=== PATIENT | male | born 1985 | race Caucasian/White ===

== ENCOUNTER 2020-08-30 16:48 | Emergency (ER) | payer SELFPAY ==
[2020-08-30 17:08] VITALS: BP 128/85; PULSE 66; TEMP 99.1; BMI 25.8
== END 2020-08-30 18:00 | disposition home or self-care (01) ==
LOC: JERFT 16:48
DX: H60.503 Unspecified acute noninfective otitis externa, bilateral (principal)
CPT/HCPCS: 99283-25

== ENCOUNTER 2020-09-10 17:31 | Emergency (ER) | payer SELFPAY ==
[2020-09-10 17:48] VITALS: BP 115/61; PULSE 57; BMI 25.8
[2020-09-10] MEDS ORDERED: IBUPROFEN 600 MG TABLET (FP) PO ONE ×2 (18:28→18:33)
== END 2020-09-10 18:37 | disposition home or self-care (01) ==
LOC: JERFT 17:31
DX: H66.90 Otitis media, unspecified, unspecified ear (principal)
CPT/HCPCS: 99284-25

== ENCOUNTER 2021-12-04 19:20 | Emergency (ER) | payer OTHER ==
[2021-12-04 19:42] VITALS: BP 131/69; PULSE 80; TEMP 98.6; BMI 24.3
== END 2021-12-04 21:15 | disposition home or self-care (01) ==
LOC: JER 19:20
DX: B02.9 Zoster without complications (principal)
CPT/HCPCS: 99283-25